=== PATIENT | male | born 1975 | race Caucasian/White ===

== ENCOUNTER 2020-03-18 19:08 | Emergency (ER) | payer BC, SELFPAY ==
[2020-03-18 19:27] VITALS: BP 136/87; PULSE 94; RESP 18; TEMP 36.6; O2SAT 98; BMI 26.4
--- NOTE | 2020-03-18 19:39 | HMH.EDUTC ---
[facility] [place] Disposition Clinical Impression: COVID-19 Disposition: Home, Self-Care Condition on Discharge: Good Instructions: Preventing the Spread of Coronavirus Discharge Instructions Referrals: PCP,No [Primary Care Provider] - Time of Disposition: 19:46 Medical Decision Making - Damon Inquiry Pt receiving controlled substance: No Vital Signs: 03/18/20 19:27 Temperature 97.9 F Temperature Source Oral Pulse Rate [Right Brachial] 94 H Respiratory Rate 18 Blood Pressure [Right Arm] 136/87 Blood Pressure Mean [Right Arm] 103 Blood Pressure Source [Right Arm] Automatic Cuff Blood Pressure Position [Right Arm] Sitting 02 Sat by Pulse Oximetry 98 Oxygen Delivery Method Room Air Orders (Tests/Meds): ORDERS Category Date Time Status Covid-19 Nasal PCR ([facility]) Routine Lab 03/18/20 19:[address] [facility] [place] HPI - General Chief complaint: [facility] Stated complaint: covid exposure Time Seen by Provider: 03/18/20 19:39 Mode of Arrival: Ambulatory Source of Information: Patient Limitations: No Limitations Description of Symptoms (Recalled from Triage Doc. by RN): PATIENT REQUESTING COVID TEST TO RETURN TO WORK; DENIES SYMPTOMS AT THIS TIME HEENT Symptoms (Recalled from RN notes): No Resp Symptoms (Recalled from RN notes): No Skin Symptoms (Recalled from RN notes): No MS Symptoms (Recalled from RN notes): No Functional Status (Recalled from RN notes): WNL - History of Present Illness Provider Complaint: 44 yr old male presents for covid test. Pt states he was exposed at work and needs two neg covid test to return to work. no symptoms - Related Data Allergies Allergy/AdvReac Type Severity Reaction Status Date / Time No Known Allergies Allergy Unverified 05/12/17 15:10 - Worker's Comp Is this a Worker's Comp case?: No [facility] History - Hepatitis A Screen Drug use history?: No High risk sexual behaviors?: No History of sexually transmitted infection?: No Currently employed?: No Childcare worker?: No Do you have indoor plumbing?: Yes Do you have electricity?: Yes Attestation statement:: This patient has been screened for Hepatitis A risk factors. I have reviewed the patient's past medical history: Yes - Social History Alcohol Intake: never Occupational Status: other ROS Obtained: Yes Systems reviewed as appropriate & no additional complaints - Constitutional Constitutional: Reports system reviewed and no additional complaints, except as docu, Denies fever(s) - Eyes Eyes: Reports system reviewed and no additional complaints, except as docu, Denies blurry vision - ENT Ears, Nose, Mouth, and Throat: Reports system reviewed and no additional complaints, except as docu, Denies change in voice - Cardiovascular Cardiovascular: Reports system reviewed and no additional complaints, except as docu, Denies chest pain at rest - Respiratory Respiratory: Yes system reviewed and no additional complaints, except as docu, No change in phlegm color - Gastrointestinal Gastrointestingal: Reports: system reviewed and no additional complaints, except as docu. Denies: nausea - Genitourinary Female Genitourinary: Reports system reviewed and no additional complaints, except as docu - Musculoskeletal Musculoskeletal: Reports system reviewed and no additional complaints, except as docu, Denies joint swelling - Integumentary/Breasts Skin/Breast: Reports system reviewed and no additional complaints, except as docu, Denies rash - Neurologic Neurologic: Reports system reviewed and no additional complaints, except as docu, Denies behavioral changes - Endocrine Endocrine: Reports system reviewed and no additional complaints, except as docu, Denies fatigue - Hematologic/Lymphatic Henatologic/Lymphatic: Reports system reviewed and no additional complaints, except as docu, Denies easy bruising - Allergic/Immunologic Allergic/Immunologic: Reports system reviewed and no additional complaints, ex
[2020-03-18 19:48] VITALS: BP 136/87; PULSE 94; RESP 18; TEMP 36.6; O2SAT 98
--- NOTE | 2020-03-19 12:02 | PC.NURSE ---
PATIENT NOTIFIED OF POSITIVE COVID TEST AT THIS TIME
== END 2020-03-18 19:49 | disposition home or self-care (01) ==
PROVIDERS: Emergency Provider Nurse Practitioner Family
DX: U07.1 COVID-19 (principal)
CPT/HCPCS: 99201; U0003

== ENCOUNTER → 2020-10-06 11:57 | Outpatient (CLI) | payer BC, SELFPAY ==
[2020-10-06 12:22] LABS: Basophils # 0.1 K/mm3 (0-0.2); Basophils % 0.9 % (0.1-2.0); Eosinophils # 0.2 K/mm3 (0.0-0.4); Eosinophils % 4.2 % (0.1-12.0); Hematocrit 45.5 % (42.0-52.0); Hemoglobin 14.3 g/dL (14.1-18.0); Lymphocytes # 2.2 K/mm3 (0.7-4.5); Lymphocytes % 43.8 % (10-50); Mean Corpuscular HGB Conc 31.4 g/dL (31.8-35.4); Mean Corpuscular Hemoglobin 27.9 pg (27.0-31.2); Mean Corpuscular Volume 88.8 fl (80-94); Mean Platelet Volume 6.9 fl (7.4-10.4); Monocytes # 0.3 K/mm3 (0.1-1.0); Monocytes % 6.1 % (1.7-9.3); Neutrophils # 2.2 K/mm3 (1.8-7.8); Neutrophils % 44.9 % (37.0-80.0); Platelet Count 301 K/mm3 (142-424); Red Blood Count 5.13 M/mm3 (4.60-6.20); Red Cell Distribution Width 12.8 % (11.5-17.5); White Blood Count 4.9 K/mm3 (4.8-10.8)
[2020-10-06 13:24] LABS: Hemoglobin A1C 5.9 % (4.0-6.0)
[2020-10-06 13:59] LABS: Alanine Aminotransferase 64 U/L (12-78); Albumin Level 4.4 g/dl (3.5-5.0); Albumin/Globulin Ratio 1.6 (1.1-1.8); Alkaline Phosphatase 71 U/L (38-126); Anion Gap 11.2 mEq/L (5-15); Aspartate Amino Transferase 41 U/L (17-59); Bilirubin,Total 0.8 mg/dl (0.2-1.3); Blood Urea Nitrogen 11 mg/dl (9-20); Calcium 9.4 mg/dl (8.4-10.2); Carbon Dioxide 32 mmol/L (22.0-30.0); Chloride 104 mmol/L (98-107); Chol/HDL Ratio 5.1 (1-3.5); Cholesterol 213 mg/dl (140-200); Estimated Glomerular Filt Rate 82 ml/min (>60); GFR (African American) 99 ML/MIN (>60); Globulin 2.7 g/dL (1.3-3.2); Glucose 88 mg/dl (74-100); HDL Cholesterol 42 mg/dl (40-60); Potassium 5.2 mmoL/L (3.5-5.1); Sodium 142 mmol/L (136-145); Total Protein,Serum 7.1 g/dl (6.3-8.2); Triglycerides 111 mg/dl (30-150); VLDL Cholesterol 22 mg/dL (0-40)
[2020-10-06 14:10] LABS: Direct LDL Cholesterol 125.41 mg/dL (100-129)
[2020-10-06 14:32] LABS: Thyroid Stimulating Hormone 1.73 uIU/mL (0.465-4.68)
[2020-10-06 14:50] LABS: Vitamin B12 376 pg/mL (239-931)
[2020-10-09 10:38] LABS: Testosterone,Total 45 ng/dL (264-916)
== END ==
PROVIDERS: Visit Provider Nurse Practitioner Family
DX: R53.81 Other malaise (principal); R68.82 Decreased libido; R00.2 Palpitations
CPT/HCPCS: 36415; 80053; 80061; 82607; 83036; 84403; 84443; 85025

== ENCOUNTER 2021-03-19 17:23 | Emergency (ER) | payer BC, SELFPAY ==
[2021-03-19 17:23] VITALS: BP 153/94; PULSE 67; RESP 16; TEMP 36.6; O2SAT 98; BMI 30.1
--- NOTE | 2021-03-19 19:34 | HMH.EDUTC ---
[facility] [place] Disposition Condition on Discharge: Good <Noelle Vanessa E - Last Filed: 03/19/21 19:38> <MargieOmar Hall - Last Filed: 03/19/21 21:22> Clinical Impression: Difficulty urinating, Renal colic Disposition: Home, Self-Care Instructions: DI for Kidney Stones Additional Instructions: fluids and see pcp and urology for follow up Referrals: Provider,Allyssa, [Primary Care Provider] - Bruno Shafer MD [Staff Physician] - Medical Decision Making - Damon Inquiry Pt receiving controlled substance: No Damon was queried for this patient: No - Lab Data Lab results reviewed: Yes: I reviewed the patient's lab results. <Noelle Vanessa - Last Filed: 03/19/21 19:38> - Lab Data Result diagrams: 03/19/21 19:15 03/19/21 19:15 - CT Data CT Scan: Abdomen, Pelvis Time Received: 21:[address] Reviewed: Yes: I have viewed the radiologist's interpretation Preliminary Findings: Abnormal (see report ) <MargieOmar S - Last Filed: 03/19/21 21:22> Vital Signs: 03/19/21 17:23 03/19/21 19:44 Temperature 97.9 F 97.9 F Temperature Source Oral Oral Pulse Rate [Left Radial] 67 67 Respiratory Rate 16 16 Blood Pressure [Right Arm] 153/94 H 153/94 H Blood Pressure Mean [Right Arm] 113 113 Blood Pressure Source [Right Arm] Automatic Cuff Blood Pressure Position [Right Arm] Sitting 02 Sat by Pulse Oximetry 98 98 Oxygen Delivery Method Room Air - Lab Data Lab Results 03/19/21 19:15: WBC 8.6, RBC 5.65, Hgb 16.5, Hct 50.8, MCV 89.9, MCH 29.2, MCHC 32.5, RDW 14.0, Plt Count 342, MPV 7.7, Neut % (Auto) 55.5, Lymph % (Auto) 33.5, Sierra % (Auto) 5.9, Eos % (Auto) 4.1, Baso % (Auto) 1.0, Neut # (Auto) 4.8, Lymph # (Auto) 2.9, Sierra # (Auto) 0.5, Eos # (Auto) 0.4, Baso # (Auto) 0.1, ESR 1 03/19/21 19:15: Sodium 140, Potassium 3.2 L, Chloride 97 L, Carbon Dioxide 37 H, Anion Gap 9.2, BUN 11, Creatinine 1.10, Estimated Creat Clear 115, Estimated GFR 73, Est GFR ( Amer) 88, Glucose 97, Calcium 9.1, Total Bilirubin 0.7, AST 36, ALT 25, Alkaline Phosphatase 75, C-Reactive Protein 2.2, Total Protein 7.4, Albumin 4.3, Globulin 3.1, Albumin/Globulin Ratio 1.4, Amylase 73, Lipase 59, Procalcitonin 0.056 03/19/21 19:18: Urine Color Yellow, Urine Appearance Clear, Urine pH 6.5, Ur Specific [place] 1.025, Urine Protein Negative, Urine Glucose (UA) Negative, Urine Ketones Negative, Urine Blood 2+, Urine Nitrate Negative, Urine Bilirubin Negative, Urine Urobilinogen 4.0, Ur Leukocyte Esterase Negative Orders (Tests/Meds): ED MEDICATIONS Generic Name Dose Route Start Last Admin Trade Name Freq PRN Reason Stop Dose Admin Sodium Chloride 1,000 mls @ 999 mls/hr 03/19/21 20:00 03/19/21 20:30 Sod Chlor 0.9% 1000ml Bag IV 03/19/21 21:00 999 mls/hr .Q1H1M MIKEY Administration Discontinued Medications Generic Name Dose Route Start Last Admin Trade Name Freq PRN Reason Stop Dose Admin Ketorolac Tromethamine 30 mg 03/19/21 19:57 03/19/21 20:30 Ketorolac 30mg/Ml Vial IV 03/19/21 19:58 30 mg ONCE ONE Administration ORDERS Category Date Time Status UA [Urinalysis and Microscopic] Stat Lab 03/19/21 19:18 Results Medical Decision Narrative: Discussed with patient and he advised he was still having pain in his left lower abdomen and felt like he still needed to urinate but having problems urinating that started on Thursday night/early Thursday morning States that pain has woke him up for the last two night and was in flank area but now in his left lower abdomen Discussed with patient and will transfer to the ED for further evaluation and testing and patient agreed Called ED spoke with Vasquez and [facility] Mode of Arrival: Ambulatory Source of Information: Patient Limitations: No Limitations Description of Symptoms (Recalled from Triage Doc. by RN): difficult time urinating, feels that he needs to go all the time with little urine, Back pain and sto
[2021-03-19 19:44] VITALS: BP 153/94; PULSE 67; RESP 16; TEMP 36.6; O2SAT 98
--- NOTE | 2021-03-19 19:48 | CT_ITS ---
PROCEDURE INFORMATION: Exam: CT Abdomen And Pelvis Without Contrast Exam date and time: 03/19/2021 7:48 PM Age: 45 years old Clinical indication: Abdominal pain; Left; Patient HX: Lt flank pain for 2 days TECHNIQUE: Imaging protocol: Computed tomography of the abdomen and pelvis without contrast. Radiation optimization: All CT scans at this facility use at least one of these dose optimization techniques: automated exposure control; mA and/or kV adjustment per patient size (includes targeted exams where dose is matched to clinical indication); or iterative reconstruction. COMPARISON: No relevant prior studies available. FINDINGS: Lungs: 6 mm granuloma at the left lung base. Liver: Parenchymal enhancement is not evaluated without contrast. No hepatomegaly. Gallbladder and bile ducts: No calcified stones. No ductal dilation. Pancreas: Parenchymal enhancement is not evaluated without contrast. No ductal dilation. Spleen: Parenchymal enhancement is not evaluated without contrast. No splenomegaly. Adrenal glands: No mass. Kidneys and ureters: Parenchymal enhancement is not evaluated without contrast. No hydronephrosis. Stomach and bowel: No obstruction. No mucosal thickening. Appendix: No evidence of appendicitis. Intraperitoneal space: No free air. No significant fluid collection. Vasculature: Limited evaluation without contrast. Calcified atherosclerosis. No abdominal aortic aneurysm. Lymph nodes: No enlarged lymph nodes. Urinary bladder: 2 mm calcification along the left posterior paramedian bladder wall. Mild bladder wall thickening measuring 7 mm. Reproductive: No acute abnormality. Bones/joints: No acute fracture. Soft tissues: Limited evaluation without contrast. No significant soft tissue swelling. IMPRESSION: 1. 2 mm calcification along the left posterior paramedian bladder wall which may represent a recently passed stone. 2. Mild bladder wall thickening measuring 7 mm which may in part be secondary to underdistention however correlation with UA is recommended.
[2021-03-19 20:02] LABS: Basophils # 0.1 K/mm3 (0-0.2); Eosinophils # 0.4 K/mm3 (0.0-0.4); Eosinophils % 4.1 % (0.1-12.0); Hematocrit 50.8 % (42.0-52.0); Hemoglobin 16.5 g/dL (14.1-18.0); Lymphocytes # 2.9 K/mm3 (0.7-4.5); Lymphocytes % 33.5 % (10-50); Mean Corpuscular HGB Conc 32.5 g/dL (31.8-35.4); Mean Corpuscular Hemoglobin 29.2 pg (27.0-31.2); Mean Corpuscular Volume 89.9 fl (80-94); Mean Platelet Volume 7.7 fl (7.4-10.4); Monocytes # 0.5 K/mm3 (0.1-1.0); Monocytes % 5.9 % (1.7-9.3); Neutrophils # 4.8 K/mm3 (1.8-7.8); Neutrophils % 55.5 % (37.0-80.0); Platelet Count 342 K/mm3 (142-424); Red Blood Count 5.65 M/mm3 (4.60-6.20); White Blood Count 8.6 K/mm3 (4.8-10.8)
[2021-03-19 20:11] LABS: Alanine Aminotransferase 25 U/L (12-78); Albumin Level 4.3 g/dl (3.5-5.0); Albumin/Globulin Ratio 1.4 (1.1-1.8); Alkaline Phosphatase 75 U/L (38-126); Amylase 73 U/L (30-110); Anion Gap 9.2 mEq/L (5-15); Aspartate Amino Transferase 36 U/L (17-59); Bilirubin,Total 0.7 mg/dl (0.2-1.3); Blood Urea Nitrogen 11 mg/dl (9-20); Calcium 9.1 mg/dl (8.4-10.2); Carbon Dioxide 37 mmol/L (22.0-30.0); Chloride 97 mmol/L (98-107); Creatinine Clearance Estimated 115 mL/min (50-200); Estimated Glomerular Filt Rate 73 ml/min (>60); GFR (African American) 88 ML/MIN (>60); Globulin 3.1 g/dL (1.3-3.2); Glucose 97 mg/dl (74-100); Lipase 59 U/L (23-300); Potassium 3.2 mmoL/L (3.5-5.1); Sodium 140 mmol/L (136-145); Total Protein,Serum 7.4 g/dl (6.3-8.2)
[2021-03-19 20:17] LABS: C-Reactive Protein 2.2 mg/L (0-4)
[2021-03-19 20:30] LABS: Procalcitonin 0.056 ng/mL (0.0-2.0)
[2021-03-19 20:50] LABS: Microscopic, Urine URINE MICROSCOPIC (MICROSCOPIC)
[2021-03-19 21:03] LABS: Erythrocyte Sedimentation Rate 1 mm/hr (0-15)
[2021-03-19 21:07] LABS: Appearance,Urine CLEAR (Clear); Bilirubin,Urine Negative (Negative); Blood, Urine 2+ (Negative); Color,Urine YELLOW (Yellow); Glucose,Urine (UA) Negative (Negative); Ketones,Urine Negative (Negative); Leukocyte Esterase,Urine Negative (Negative); Nitrate,Urine Negative (Negative); PH,Urine 6.5 (5.0-8.5); Protein,Urine Negative (Negative); Specific Gravity, Urine 1.025 (1.005-1.030)
[2021-03-19 21:50] VITALS: BP 135/78; PULSE 88; RESP 18; TEMP 36.8; O2SAT 98
[2021-03-20 10:41] LABS: Apearance,Urine Cloudy (Clear); Blood, Urine 2+ (Negative); Color,Urine Yellow (Yellow); Glucose,Urine (UA) Negative (Negative); Ketones,Urine TRACE (Negative); PH,Urine 6.5 (5.0-8.5); Protein,Urine Negative (Negative); Specific Gravity, Urine 1.025 (1.005-1.030)
[2021-03-20 10:42] LABS: Bilirubin,Urine Negative (Negative); UTC Leukocyte Esterase,Urine Negative (Negative); UTC Nitrate,Urine Negative (Negative); Urobilinogen,Urine 4 EU/dl (0.2)
== END 2021-03-19 22:00 | disposition home or self-care (01) ==
LOC: UTC 19:42 → ER 19:42
PROVIDERS: Nurse Practitioner; Emergency Provider Emergency Medicine
DX: N23 Unspecified renal colic (principal); R10.32 Left lower quadrant pain
CPT/HCPCS: 74176; 80053; 81001; 81003; 82150; 83690; 84145; 85025; 85651; 86140; 99283

== ENCOUNTER → 2021-06-03 16:13 | Outpatient (CLI) | payer BC, SELFPAY | PROVIDERS: Visit Provider Nurse Practitioner | DX: U07.1 COVID-19 (principal) | CPT/HCPCS: C9803; U0003; U0005 ==

== ENCOUNTER 2022-01-20 13:17 | Emergency (ER) | payer BC, SELFPAY ==
[2022-01-20 15:40] VITALS: BP 145/91; PULSE 84; RESP 18; TEMP 36.6; O2SAT 97; BMI 27.8
--- NOTE | 2022-01-20 16:09 | EXP.UTC ---
Discharge Plan Disposition Patient Disposition: Home, Self-Care Condition: Good Prescriptions Prescriptions: New azithromycin [Zithromax Z-Miller] 250 mg tablet See Rx Instructions .ROUTE .COMPLEX Qty: 6 0RF Rx Instructions: For 250 mg dose pack: take 500 mg today (day 1), then 250 mg for 4 days (days 2-5) methylprednisolone [Medrol (Miller)] 4 mg tablets,dose pack 4 mg PO DAILY Qty: 21 0RF guaifenesin [Mucinex] 600 mg tablet extended release 12hr 600 mg PO Q12H PRN (Reason: cough) Qty: 20 0RF No Action buprenorphine-naloxone [Suboxone] 8-2 mg film 1 film BUCCAL DAILY Referrals Follow up/Referrals: Provider,Referral, MD [Primary Care Provider] - See instructions Clinical Impressions Clinical Impression: Sinusitis, Bronchitis Stand Alone Forms Stand Alone Forms: Work/School Release Instructions Patient Instructions: Acute Bronchitis, DI for Sinusitis Discharge ED Provider: Noelle Vanessa [facility] [place] HPI General Stated complaint: congestion, cough Mode of Arrival: Ambulatory Source of Information: Patient Limitations: No Limitations Time Seen by Provider: 01/20/22 16:10 Description of Symptoms (Recalled from Triage Doc. by RN): PATIENT C/O FEVER, COUGH, CHEST CONGESTION AND HEADACHE X 3 DAYS HEENT Symptoms (Recalled from RN notes): Yes Resp Symptoms (Recalled from RN notes): Yes Skin Symptoms (Recalled from RN notes): No MS Symptoms (Recalled from RN notes): No Functional Status (Recalled from RN notes): WNL History of Present Illness Provider Complaint: Patient states that he has been having low grade fever, sinus pain and pressure, drainage in the back of throat and feels like it is trying to move into his chest. States that he has been having cough and burning in his throat with cough like he gets sometimes with bronchitis States that today he was still feeling bad so he came in Related Data Home Medications Medication Instructions Recorded Confirmed buprenorphine 8 mg-naloxone 2 mg 1 film buccal DAILY 03/26/21 03/26/21 sublingual film (Suboxone) Previous Rx's Medication Instructions Recorded azithromycin 250 mg tablet See Rx Instructions PO .COMPLEX #6 01/20/22 (Zithromax Z-Miller) tabs guaifenesin 600 mg tablet, 600 mg PO Q12H PRN cough #20 tabs 01/20/22 extended release 12 hr (Mucinex) methylprednisolone 4 mg tablets in 4 mg PO DAILY #21 tabs 01/20/22 a dose pack (Medrol (Miller)) Allergies Allergy/AdvReac Type Severity Reaction Status Date / Time No Known Allergies Allergy Unverified 03/26/21 15:11 Worker's Comp Is this a Worker's Comp case?: No PFSH PFSH Medical History (Updated 01/20/22 @ 16:20 by Noelle Vanessa APRN) Hypertension Kidney stone Surgical History (Updated 01/20/22 @ 15:52 by Nadine Hutson, RN) History of tonsillectomy Social History (Updated 01/20/22 @ 15:52 by Nadine Hutson RN) Smoking Status: Never smoker alcohol intake: never substance use type: former substance user current occupational status: other Travel in the last 8 weeks: None housing: house ROS Obtained: Yes All systems reviewed & no additional complaints except as documented and Yes Systems reviewed as appropriate & no additional complaints except as documented Constitutional Constitutional: Reports fever(s) ENT Ears, Nose, Mouth, and Throat: Reports system reviewed and no additional complaints, except as documented, Reports sinus pain, Reports sinus pressure and Reports sore throat Cardiovascular Cardiovascular: Reports system reviewed and no additional complaints, except as documented, Reports as per HPI and Denies dyspnea Respiratory Respiratory: Reports system reviewed and no additional complaints, except as documented, Reports as per HPI, Denies shortness of breath, Reports chest congestion, Reports cough and Denies dyspnea Gastrointestinal Gastrointestingal: Reports system reviewed and no additional complaints, except as documented and as
[2022-01-20 16:24] VITALS: BP 145/91; PULSE 84; RESP 18; TEMP 36.6; O2SAT 97
== END 2022-01-20 16:34 | disposition home or self-care (01) ==
PROVIDERS: Emergency Provider Nurse Practitioner
DX: J20.9 Acute bronchitis, unspecified (principal); J32.9 Chronic sinusitis, unspecified

== ENCOUNTER 2022-04-30 18:07 | Emergency (ER) | payer BC, SELFPAY ==
[2022-04-30 18:18] VITALS: BP 152/88; PULSE 70; RESP 18; TEMP 36.5; O2SAT 98; BMI 27.1
--- NOTE | 2022-04-30 18:30 | EXP.UTC ---
Discharge Plan Disposition Patient Disposition: Home, Self-Care Condition: Good Prescriptions Prescriptions: New oseltamivir [Tamiflu] 75 mg capsule 75 mg PO Q12H 5 Days Qty: 10 0RF ondansetron 4 mg tablet,disintegrating 4 mg PO Q8H PRN (Reason: nausea and vomiting) Qty: 10 0RF No Action buprenorphine-naloxone [Suboxone] 8-2 mg film 1 film BUCCAL DAILY azithromycin [Zithromax Z-Miller] 250 mg tablet See Rx Instructions .ROUTE .COMPLEX Qty: 6 0RF Rx Instructions: For 250 mg dose pack: take 500 mg today (day 1), then 250 mg for 4 days (days 2-5) methylprednisolone [Medrol (Miller)] 4 mg tablets,dose pack 4 mg PO DAILY Qty: 21 0RF guaifenesin [Mucinex] 600 mg tablet extended release 12hr 600 mg PO Q12H PRN (Reason: cough) Qty: 20 0RF Activity Restrictions/Add. Instructions Additional Instructions/Restrictions: *Monitor Temp, Over the counter Motrin or Tylenol as directed/as needed Tylenol every 4 hours and Motrin every 6 hours (as long as your family doctor has told you that you can take it) for fever or pain. and straight to ER if unable to lower temp less than 101.0 after medication given *Warm salt water gargles may help to soothe the throat *Throat Lozenges? *Warm fluids like tea with honey may help to soothe the throat? *Sleep elevated *Humidifier/Vaporizer Start Tamiflu today if you are going to take it. Discussed risk and possible benefits. Lots of rest Increase Fluids water, Gatorade, powerade, Alternate Tylenol and / or ibuprofen as discussed for fever, aches, chills Follow up IMMEDIATELY with your family doctor for new or worsening Symptoms OR no noticeable improvement over the next 48-72 hours, 911 for difficulty or breathing You or your child area contagious until no fever, aches, chills for 24 hours with medication for symptoms Help Prevent the spread of influenza: ?Wash your hands often. Use soap and water. Wash your hands after you use the bathroom, change a child's diapers, or sneeze. Wash your hands before you prepare or eat food. Use gel hand cleanser that has 60% alcohol, when soap and water are not available. Do not touch your eyes, nose, or mouth unless you have washed your hands first. Cover your mouth when you sneeze or cough. Cough into a tissue or the bend of your arm. If you use a tissue, throw it away immediately and wash your hands. Clean shared items with a germ-killing general cleaner. Clean table surfaces, doorknobs, and light switches. Do not share towels, silverware, and dishes with people who are sick. Wash bed sheets, towels, silverware, and dishes with soap and water. Wear a mask over your mouth and nose if you are sick. The face mask may help protect others from becoming infected with the flu. Wear the mask when in common areas of your home or if you seek care with a healthcare provider. Stay away from others if you are sick. Stay at home until 24 hours after your fever and symptoms are gone. Follow up IMMEDIATELY for new or worsening symptoms or no Noticeable improvement over the next 48-72 hours. 911 for difficulty breathing or swallowing You were tested for today for Upper Respiratory panel with COVID19 your test result should be back in the next 24-48 hours, you may check your results on the [facility] Clinical Impressions Clinical Impression: Viral syndrome Stand Alone Forms Stand Alone Forms: Work/School Release Instructions Patient Instructions: DI for Nausea -- Adult, DI for Fever (Symptom) -- Adult Discharge ED Provider: Noelle Vanessa [facility] [place] HPI General Stated complaint: sullivan, aBD pAIN Mode of Arrival: Ambulatory Source of Information: Patient Limitations: No Limitations Time Seen by Provider: 04/30/22 18:30 Description of Symptoms (Recalled from Triage Doc
[2022-04-30 18:47] LABS: Adenovirus,PCR Not Detected (NotDetected); Bordetella Pertussis Not Detected (NotDetected); Chlamydophila Pneumoniae, PCR Not Detected (NotDetected); Coronavirus 19, PCR Not Detected (NotDetected); Coronavirus 229E Not Detected (NotDetected); Coronavirus NL63 Not Detected (NotDetected); Coronavirus OC43 Not Detected (NotDetected); Coronovirus HKU1,PCR Not Detected (NotDetected); Human Metapneumovirus Not Detected (NotDetected); Influenza A, PCR Not Detected (NotDetected); Influenza AH1, 2009 Not Detected (NotDetected); Influenza AH1, PCR Not Detected (NotDetected); Influenza AH3,PCR Not Detected (NotDetected); Influenza B, PCR Not Detected (NotDetected); Mycoplasma Pneumoniae, PCR Not Detected (NotDetected); Parainfluenza 1, PCR Not Detected (NotDetected); Parainfluenza 2, PCR Not Detected (NotDetected); Parainfluenza 3, PCR Not Detected (NotDetected); Parainfluenza 4, PCR Not Detected (NotDetected); Respiratory Syncytial Virus Not Detected (NotDetected); Rhinovirus/Enterovirus Not Detected (NotDetected)
[2022-04-30 19:10] VITALS: BP 152/88; PULSE 70; RESP 18; TEMP 36.5; O2SAT 97
== END 2022-04-30 19:10 | disposition home or self-care (01) ==
LOC: UTC 19:16
PROVIDERS: Emergency Provider Nurse Practitioner
DX: R51.9 Headache, unspecified (principal); R10.9 Unspecified abdominal pain; B34.9 Viral infection, unspecified
CPT/HCPCS: 87581; 87632; 87798; 99212; C9803; G0463; U0003; U0005

== ENCOUNTER → 2023-02-19 15:33 | Outpatient (CLI) | payer BC, SELFPAY ==
--- NOTE | 2023-02-19 15:47 | XR_ITS ---
FINAL REPORT CLINICAL HISTORY: ACUTE PAIN FINDINGS: AP, lateral and oblique views of the right knee were obtained. There is no prior exam for comparison. There is no acute osseous abnormality of the right knee. The joint space is preserved. The soft tissues are normal. There is no joint effusion. IMPRESSION: No acute osseous abnormality of the right knee. Reviewed, Interpreted and Dictated by Elli Daniel MD Transcribed by Susan Owens Authenticated and [facility]
== END ==
LOC: RAD 15:42
PROVIDERS: Visit Provider Physician Assistant
DX: M25.561 Pain in right knee (principal)
CPT/HCPCS: 73562

== ENCOUNTER 2023-09-17 17:58 | Emergency (ER) | payer BC, SELFPAY ==
--- NOTE | 2023-09-17 17:57 | ECG_ITS ---
APPROVED REPORT Exam: Resting ECG HR:104 bpm ECG Measurements Heart Rate 104 AXES NE 134 P 52 QRSd 86 QRS 56 QT 317 T -77 QTc 378 Conclusion SINUS TACHYCARDIA LEFT VENTRICULAR HYPERTROPHY AND ST-T CHANGE [VOLTAGE CRITERIA PLUS ST/T ABNORMALITY] ABNORMAL ECG INTERPRETATION BASED ON A DEFAULT AGE OF 41 YEARS UNCONFIRMED REPORT Electronically signed by : CORIN BURRELL, 09/20/2023 01:18:24
[2023-09-17 17:58] VITALS: BP 198/112; PULSE 99; RESP 20; TEMP 36.7; O2SAT 96; BMI 28.7
[2023-09-17 18:00] VITALS: BP 190/104; PULSE 94; RESP 13; O2SAT 92
--- NOTE | 2023-09-17 18:00 | ED_ITS ---
Discharge Plan Disposition Patient Disposition: Home, Self-Care Condition: Good Prescriptions Prescriptions: No Action buprenorphine-naloxone [Suboxone] 8-2 mg film 1 film BUCCAL DAILY Clenpiq 10 mg-3.5 gram- 12 gram/160 mL solution 175 ml PO DAILY Qty: 350 0RF Rx Instructions: take first dose at 5-9PM evening before colonoscopy; 2nd dose the next day approximately 5 hrs before colonoscopy Referrals Follow up/Referrals: Bishnu Nunez MD [Staff Physician] - See instructions Provider,MD Allyssa [Referring] - See instructions Activity Restrictions/Add. Instructions Additional Instructions/Restrictions: Please call to make an appointment with cardiology in the a.m. for further evaluation. Return to the ER for any worsening signs or symptoms including chest pain nausea vomiting change in level of consciousness. Clinical Impressions Clinical Impression: Acute chest pain Discharge ED Provider: Damian Saleh HPI <MIGDALIA Arnold - Last Filed: 09/17/23 19:38> General Chief Complaint: Chest Pain Stated Complaint: chest pain Time Seen by Provider: 09/17/23 18:00 History of Present Illness HPI narrative: Patient presents for evaluation of chest pain . Patient reports that he was holding his 2-month-old granddaughter and a ceiling fan began to fall and is attempting to move out of the way and protect her he fell backwards. He ended up on the floor and the 2-month-old ended up on the couch with no apparent injury. However after patient hit the floor and suffered no apparent injury. However he reports that he feels like he had shock from the waist up radiating down both arms and felt a rapid heart rate. He denies headache loss of consciousness fever chills hemoptysis hematochezia melena nausea vomit diarrhea. On arrival patient denies chest pain at all and reports bilateral hand numbness and tingling. Related Data Home Medications Medication Instructions Recorded Confirmed buprenorphine 8 mg-naloxone 2 mg 1 film buccal DAILY 03/26/21 03/26/21 sublingual film (Suboxone) Previous Rx's Medication Instructions Recorded sod picosulf 10 mg-magnes 3.5 175 ml PO DAILY 2 doses #350 mL 04/28/23 gram-citric 12 gram/160 mL oral solution (Clenpiq) Allergies Allergy/AdvReac Type Severity Reaction Status Date / Time No Known Allergies Allergy Unverified 03/26/21 15:11 PFSH <MIGDALIA Arnold - Last Filed: 09/17/23 19:38> [facility] Disclaimer: The information contained in this section may have been updated after the patient was seen, as this information can be updated by other users. Medical History (Updated 09/17/23 @ 19:38 by MIGDALIA Arnold) Kidney stone Hypertension Surgical History History of tonsillectomy Family History (Updated 05/14/23 @ 10:47 by Vernon Machuca, RN) Other Family history of diabetes mellitus Family history of heart disease Social History (Updated 05/14/23 @ 10:48 by Vernon Machuca RN) Smoking Status: Current every day smoker alcohol intake: never substance use type: former substance user current occupational status: employed and other Travel in the last 8 weeks: None housing: house <MIGDALIA Arnold - Last Filed: 09/17/23 19:38> ROS Obtained: Yes Systems reviewed as appropriate & no additional complaints except as documented Physical Exam <MIGDALIA Arnold - Last Filed: 09/17/23 19:38> General General appearance: alert and in no apparent distress Head Head exam: atraumatic and normal inspection Eye Eye exam: Present normal appearance, PERRL and EOMI ENT ENT exam: Present normal exam, normal oropharynx and mucous membranes moist Neck Neck exam: Present normal inspection, full ROM and trachea midline; Absent lymphadenopathy Chest Chest inspection: Present normal inspection and symmetric chest wall rise; Absent tenderness Respiratory Respiratory exam: Present normal lung sounds bilaterally; Absent respiratory distress, wheezes, stridor or accessory muscle use Cardiovascular Cardiovascular exam: Present regular rate, normal rhythm, normal heart sounds, +S1 and +S2 Abdominal Exam Abdominal exam: Present soft and normal bowel sounds; Absent tenderness, guarding or rebound Extremities Exam Extremities exam: Present normal inspection and full ROM Back Exam Back exam: Present normal inspection and full ROM; Absent tenderness Neurological Exam Neurological exam: Present alert, oriented X3 and CN II-XII intact Psychiatric Psychiatric exam: Present normal affect and anxious Skin Skin exam: Present warm, dry and normal color Lymphatic Lymphatic Findings: no adenopathy HEART Score <MIGDALIA Arnold Last Filed: 09/17/23 19:38> HEART Score HEART Score assessment performed?: Yes History (anamnesis): Slightly suspicious ECG: Normal Age: 45-65 years Risk factors: 1-2 risk factors Troponin: </= normal limit HEART Score: 2 <Damian Saleh MD - Last Filed: 09/17/23 19:46> HEART Score HEART Score: 2 Critical Care <MIGDALIA Arnold - Last Filed: 09/17/23 19:38> Critical Care Time Critical Care Time: No Medical Decision Making <MIGDALIA Arnold - Last Filed: 09/17/23 19:38> Medical Records Medical records reviewed: Yes I reviewed the patient's medical records. Damon Inquiry Pt receiving controlled substance: No Vital Signs Vital Signs: 09/17/23 17:58 09/17/23 18:00 09/17/23 18:30 Temperature 98.0 F Temperature Source Oral Pulse Rate 94 H 96 H Pulse Rate [Right Radial] 99 H Respiratory Rate 20 13 13 Blood Pressure 190/104 H 156/106 H Blood Pressure [Right Arm] 198/112 H Blood Pressure Mean 130 138 Blood Pressure Mean [Right Arm] 140 02 Sat by Pulse Oximetry 96 92 L 92 L Oxygen Delivery Method Room Air 09/17/23 19:43 Temperature Temperature Source Pulse Rate 90 Pulse Rate [Right Radial] Respiratory Rate Blood Pressure Blood Pressure [Right Arm] Blood Pressure Mean Blood Pressure Mean [Right Arm] 02 Sat by Pulse Oximetry Oxygen Delivery Method Lab Data Lab results reviewed: Yes I reviewed the patient's lab results. Labs: Lab Results 09/17/23 17:55: WBC 9.4, RBC 5.64, Hgb 17.2, Hct 52.6 H, MCV 93.2, MCH 30.4, MCHC 32.6, RDW 14.0, Plt Count 258, MPV 7.6, Neut % (Auto) 59.8, Lymph % (Auto) 31.1, [place] % (Auto) 5.2, Eos % (Auto) 2.6, Baso % (Auto) 1.2, Neut # (Auto) 5.6, Lymph # (Auto) 2.9, [place] # (Auto) 0.5, Eos # (Auto) 0.2, Baso # (Auto) 0.1, PT 11.3, INR 1.05, Sodium 140, Potassium 2.9 L*, Chloride 100, Carbon Dioxide 35 H, Anion Gap 7.9, BUN 11, Creatinine 1.20, Estimated Creat Clear 99, Estimated GFR 65, Est GFR ( Amer) 79, Glucose 134 H, Calcium 8.8, Total Bilirubin 1.2, AST 34, ALT 37, Alkaline Phosphatase 69, Troponin I < 0.01, Total Protein 7.0, Albumin 4.2, Globulin 2.8, Albumin/Globulin Ratio 1.5 09/17/23 18:02: Urine Color Yellow, Urine Appearance Clear, Urine pH 7.5, Ur Specific [place] 1.010, Urine Protein Negative, Urine Glucose (UA) Negative, Urine Ketones Negative, Urine Blood Negative, Urine Nitrate Negative, Urine Bilirubin Negative, Urine Urobilinogen 0.2, Ur Leukocyte Esterase Negative 09/17/23 18:03: VBG pH 7.41, VBG pCO2 46.8, VBG pO2 40.3 H, VBG HCO3 29.1, VBG Total CO2 30.6 H, VBG O2 Saturation 78.7 H, VBG Base Excess 4.5 H, VBG Lactic Acid 2.1 H 09/17/23 17:55 09/17/23 17:55 Response Orders (Tests/Meds): ED MEDICATIONS Discontinued Medications Generic Name Dose Route Start Last Admin Trade Name Wilnerq PRN Reason Stop Dose Admin Acetaminophen 1,000 mg 09/17/23 18:00 09/17/23 18:21 Acetaminophen 1,000mg/100ml Vial IV 09/17/23 18:01 1,000 mg ONCE ONE Administration Diphenhydramine HCl 50 mg 09/17/23 18:03 09/17/23 18:21 Diphenhydramine 50mg/Ml Vial IV 09/17/23 18:04 50 mg ONCE ONE Administration Lactated Ringer's 1,000 mls @ 999 mls/hr 09/17/23 18:00 09/17/23 18:21 Lactated Ringer's 1000 Ml Bag IV 09/17/23 19:00 999 mls/hr .Q1H1M ONE Administration Potassium Chloride/Water 100 mls @ 100 mls/hr 09/17/23 18:21 09/17/23 18:32 Potassium Chloride 10meq/100ml Ivpb IV 09/17/23 19:20 100 mls/hr ONCE ONE Administration Ketorolac Tromethamine 15 mg 09/17/23 18:00 09/17/23 18:21 Ketorolac 30mg/Ml Vial IV 09/17/23 18:01 15 mg ONCE ONE Administration Ondansetron HCl 4 mg 09/17/23 18:21 09/17/23 18:32 Ondansetron 4mg/2ml Vial IV 09/17/23 18:22 4 mg ONCE ONE Administration Potassium Chloride 80 meq 09/17/23 18:21 09/17/23 18:32 Potassium Chloride 20meq Tab PO 09/17/23 18:22 80 meq ONCE ONE Administration ORDERS Category Date Time Status Chest XR -- portable [XR chest portable] Stat Exams 09/17/23 18:01 Completed CBC w/Auto Diff [Complete Blood Count Auto Diff] Stat Lab 09/17/23 17:55 Completed CMP [Comprehensive Metabolic Panel] Stat Lab 09/17/23 17:55 Completed INR [Prothrombin Time INR] Stat Lab 09/17/23 17:55 Completed Trop I [Troponin I] Stat Lab 09/17/23 17:55 Completed Troponin I Q3H Lab 09/17/23 21:15 Ordered Troponin I Q3H Lab 09/18/23 00:15 Ordered UA [Urinalysis and Microscopic] Stat Lab 09/17/23 18:02 Results VBG [Venous Blood Gas] Stat RT 09/17/23 18:03 Completed MDM Narrative Medical Decision Narrative: In summary patient is a 47-year-old male who presents to the emergency department for evaluation of chest pain. Patient is initially hypertensive but with a heart rate of 99 satting at 96% on room air respiratory rate of 20 upon arrival, afebrile. Physical exam is unremarkable and nonfocal including no back pain no chest pain to palpation full range of motion of all 4 extremities no focal neurologic deficits although patient is extraordinarily anxious about his granddaughter.. Differential diagnosis includes ACS versus anxiety versus neurologic injury. Initial workup will be conducted with twelve-lead EKG hematologic labs plain from chest x-ray. Initial interventions include fluid bolus Toradol Tylenol and Benadryl initial workup reviewed by me and his hematologic labs are remarkable for a low potassium which has been repleted the remainder of his hematologic labs are nonactionable including an undetectable troponin. Twelve-lead EKG shows no evidence of ACS. Patient is able to ambulate under his own power without any neurologic deficits or pain. Patient's current pain is 0 out of 10. Upon repeat evaluation patient has returned to complete baseline sensation.. Given this discharged home with a referral to cardiology for further evaluation as an outpatient <Damian Saleh MD - Last Filed: 09/17/23 19:46> Vital Signs Vital Signs: 09/17/23 17:58 09/17/23 18:00 09/17/23 18:30 Temperature 98.0 F Temperature Source Oral Pulse Rate 94 H 96 H Pulse Rate [Right Radial] 99 H Respiratory Rate 20 13 13 Blood Pressure 190/104 H 156/106 H Blood Pressure [Right Arm] 198/112 H Blood Pressure Mean 130 138 Blood Pressure Mean [Right Arm] 140 02 Sat by Pulse Oximetry 96 92 L 92 L Oxygen Delivery Method Room Air 09/17/23 19:43 Temperature Temperature Source Pulse Rate 90 Pulse Rate [Right Radial] Respiratory Rate Blood Pressure Blood Pressure [Right Arm] Blood Pressure Mean Blood Pressure Mean [Right Arm] 02 Sat by Pulse Oximetry Oxygen Delivery Method Lab Data Labs: Lab Results 09/17/23 17:55: WBC 9.4, RBC 5.64, Hgb 17.2, Hct 52.6 H, MCV 93.2, MCH 30.4, MCHC 32.6, RDW 14.0, Plt Count 258, MPV 7.6, Neut % (Auto) 59.8, Lymph % (Auto) 31.1, [place] % (Auto) 5.2, Eos % (Auto) 2.6, Baso % (Auto) 1.2, Neut # (Auto) 5.6, Lymph # (Auto) 2.9, [place] # (Auto) 0.5, Eos # (Auto) 0.2, Baso # (Auto) 0.1, PT 11.3, INR 1.05, Sodium 140, Potassium 2.9 L*, Chloride 100, Carbon Dioxide 35 H, Anion Gap 7.9, BUN 11, Creatinine 1.20, Estimated Creat Clear 99, Estimated GFR 65, Est GFR ( Amer) 79, Glucose 134 H, Calcium 8.8, Total Bilirubin 1.2, AST 34, ALT 37, Alkaline Phosphatase 69, Troponin I < 0.01, Total Protein 7.0, Albumin 4.2, Globulin 2.8, Albumin/Globulin Ratio 1.5 09/17/23 18:02: Urine Color Yellow, Urine Appearance Clear, Urine pH 7.5, Ur Specific [place] 1.010, Urine Protein Negative, Urine Glucose (UA) Negative, Urine Ketones Negative, Urine Blood Negative, Urine Nitrate Negative, Urine Bilirubin Negative, Urine Urobilinogen 0.2, Ur Leukocyte Esterase Negative 09/17/23 18:03: VBG pH 7.41, VBG pCO2 46.8, VBG pO2 40.3 H, VBG HCO3 29.1, VBG Total CO2 30.6 H, VBG O2 Saturation 78.7 H, VBG Base Excess 4.5 H, VBG Lactic Acid 2.1 H Response Orders (Tests/Meds): ED MEDICATIONS Discontinued Medications Generic Name Dose Route Start Last Admin Trade Name Freq PRN Reason Stop Dose Admin Acetaminophen 1,000 mg 09/17/23 18:00 09/17/23 18:21 Acetaminophen 1,000mg/100ml Vial IV 09/17/23 18:01 1,000 mg ONCE ONE Administration Diphenhydramine HCl 50 mg 09/17/23 18:03 09/17/23 18:21 Diphenhydramine 50mg/Ml Vial IV 09/17/23 18:04 50 mg ONCE ONE Administration Lactated Ringer's 1,000 mls @ 999 mls/hr 09/17/23 18:00 09/17/23 18:21 Lactated Ringer's 1000 Ml Bag IV 09/17/23 19:00 999 mls/hr .Q1H1M ONE Administration Potassium Chloride/Water 100 mls @ 100 mls/hr 09/17/23 18:21 09/17/23 18:32 Potassium Chloride 10meq/100ml Ivpb IV 09/17/23 19:20 100 mls/hr ONCE ONE Administration Ketorolac Tromethamine 15 mg 09/17/23 18:00 09/17/23 18:21 Ketorolac 30mg/Ml Vial IV 09/17/23 18:01 15 mg ONCE ONE Administration Ondansetron HCl 4 mg 09/17/23 18:21 09/17/23 18:32 Ondansetron 4mg/2ml Vial IV 09/17/23 18:22 4 mg ONCE ONE Administration Potassium Chloride 80 meq 09/17/23 18:21 09/17/23 18:32 Potassium Chloride 20meq Tab PO 09/17/23 18:22 80 meq ONCE ONE Administration ORDERS Category Date Time Status Chest XR -- portable [XR chest portable] Stat Exams 09/17/23 18:01 Completed CBC w/Auto Diff [Complete Blood Count Auto Diff] Stat Lab 09/17/23 17:55 Completed CMP [Comprehensive Metabolic Panel] Stat Lab 09/17/23 17:55 Completed INR [Prothrombin Time INR] Stat Lab 09/17/23 17:55 Completed Trop I [Troponin I] Stat Lab 09/17/23 17:55 Completed Troponin I Q3H Lab 09/17/23 21:15 Ordered Troponin I Q3H Lab 09/18/23 00:15 Ordered UA [Urinalysis and Microscopic] Stat Lab 09/17/23 18:02 Results VBG [Venous Blood Gas] Stat RT 09/17/23 18:03 Completed MDM Narrative Medical Decision Narrative: In summary patient is a 47-year-old male who presents to the emergency department for evaluation of chest pain. Patient is initially hypertensive but with a heart rate of 99 satting at 96% on room air respiratory rate of 20 upon arrival, afebrile. Physical exam is unremarkable and nonfocal including no back pain no chest pain to palpation full range of motion of all 4 extremities no focal neurologic deficits although patient is extraordinarily anxious about his granddaughter.. Differential diagnosis includes ACS versus anxiety versus neurologic injury. Initial workup will be conducted with twelve-lead EKG hematologic labs plain from chest x-ray. Initial interventions include fluid bolus Toradol Tylenol and Benadryl initial workup reviewed by me and his hematologic labs are remarkable for a low potassium which has been repleted the remainder of his hematologic labs are nonactionable including an undetectable troponin. Twelve-lead EKG shows no evidence of ACS. Patient is able to ambulate under his own power without any neurologic deficits or pain. Patient's current pain is 0 out of 10. Upon repeat evaluation patient has returned to complete baseline sensation.. Given this discharged home with a referral to cardiology for further evaluation as an outpatient EKG independently interpreted, sinus tachycardia with LVH. Symmetric T wave inversions consistent with repolarization abnormality in the setting of LVH. No acute ischemic change. Rate 104 bpm, intervals within normal limits including ME, QRS, QT. I was consulted by the [facility], and we discussed the complexity of the problems being addressed. I approved the treatment and management plan for this patient?s care in the Emergency Department, thus performing a substantive portion of the medical decision making. Damian Saleh MD
--- NOTE | 2023-09-17 18:01 | XR_ITS ---
PROCEDURE INFORMATION: Exam: XR Chest Exam date and time: 09/17/2023 6:06 PM Age: 47 years old Clinical indication: Sternal or substernal pain; Additional info: Chest pain after stressful event TECHNIQUE: Imaging protocol: Radiologic exam of the chest. Views: 1 view. COMPARISON: CT ABDOMEN PELVIS WO CON 03/19/2021 8:15 PM FINDINGS: Lungs: The lungs are clear. Pleural spaces: There is no evidence for pneumothorax. Heart/Mediastinum: The heart size is within normal limits. Bones/joints: Unremarkable. IMPRESSION: 1. The lungs are clear. 2. There is no evidence for pneumothorax.
[2023-09-17 18:10] LABS: Chloride 100 mmol/L (98-107); Sodium 140 mmol/L (136-145)
[2023-09-17 18:13] LABS: Alanine Aminotransferase 37 U/L (12-78); Albumin Level 4.2 g/dl (3.5-5.0); Albumin/Globulin Ratio 1.5 (1.1-1.8); Alkaline Phosphatase 69 U/L (38-126); Anion Gap 7.9 mEq/L (5-15); Aspartate Amino Transferase 34 U/L (17-59); Bilirubin,Total 1.2 mg/dl (0.2-1.3); Blood Urea Nitrogen 11 mg/dl (9-20); Carbon Dioxide 35 mmol/L (22.0-30.0); Creatinine Clearance Estimated 99 mL/min (50-200); Estimated Glomerular Filt Rate 65 ml/min (>60); GFR (African American) 79 ML/MIN (>60); Globulin 2.8 g/dL (1.3-3.2)
[2023-09-17 18:14] LABS: Calcium 8.8 mg/dl (8.4-10.2); Glucose 134 mg/dl (74-100)
[2023-09-17 18:15] LABS: INR 1.05 (0.9-1.1); Prothrombin Time 11.3 seconds (10.1-12.5)
[2023-09-17 18:17] LABS: Potassium 2.9 mmoL/L (3.5-5.1)
--- NOTE | 2023-09-17 18:20 | PC.NURSE ---
Dr. Saleh & Allan Diana PA-C notified critical potassium
[2023-09-17 18:21] LABS: Basophils # 0.1 K/mm3 (0-0.2); Basophils % 1.2 % (0.1-2.0); Eosinophils # 0.2 K/mm3 (0.0-0.4); Eosinophils % 2.6 % (0.1-12.0); Hematocrit 52.6 % (42.0-52.0); Hemoglobin 17.2 g/dL (14.1-18.0); Lymphocytes # 2.9 K/mm3 (0.7-4.5); Lymphocytes % 31.1 % (10-50); Mean Corpuscular HGB Conc 32.6 g/dL (31.8-35.4); Mean Corpuscular Hemoglobin 30.4 pg (27.0-31.2); Mean Corpuscular Volume 93.2 fl (80-94); Mean Platelet Volume 7.6 fl (7.4-10.4); Monocytes # 0.5 K/mm3 (0.1-1.0); Monocytes % 5.2 % (1.7-9.3); Neutrophils # 5.6 K/mm3 (1.8-7.8); Neutrophils % 59.8 % (37.0-80.0); Platelet Count 258 K/mm3 (142-424); Red Blood Count 5.64 M/mm3 (4.60-6.20); White Blood Count 9.4 K/mm3 (4.8-10.8)
[2023-09-17] MEDS: ACETAMINOPHEN 1,000MG/100ML VIAL 1000 MG IV (18:21)
[2023-09-17] MEDS: KETOROLAC 30MG/ML VIAL 15 MG IV (18:21)
[2023-09-17] MEDS: diphenhydrAMINE 50MG/ML VIAL 50 MG IV (18:21)
[2023-09-17] MEDS: LACTATED RINGERS 1000ML 1,000 ML 999 ML IV (18:21)
[2023-09-17 18:22] LABS: VBG Base Excess 4.5 mmol/L (-2.4-2.3); VBG HCO3 29.1 mmol/L (23-30); VBG Oxygen Saturation 78.7 % (50-70); VBG PCO2 46.8 mmol/L (35-51); VBG PH 7.41 mmol/L (7.31-7.41); VBG PO2 40.3 mmol/L (28-40); VBG Total CO2 30.6 mmol/L (23-27)
[2023-09-17 18:28] LABS: Lactate Venous 2.1 mmol/L (0.4-2.0)
[2023-09-17 18:28] LABS: Troponin I < 0.01 ng/ml (0.00-0.034)
[2023-09-17 18:30] VITALS: BP 156/106; PULSE 96; RESP 13; O2SAT 92
[2023-09-17] MEDS: ONDANSETRON 4MG/2ML VIAL 4 MG IV (18:32)
[2023-09-17] MEDS: POTASSIUM CHLORIDE 20MEQ TAB 80 MEQ PO (18:32)
[2023-09-17] MEDS: KCl 10mEq/100ml 100 ML 100 MEQ IV (18:32)
[2023-09-17 19:41] LABS: Microscopic, Urine URINE MICROSCOPIC (MICROSCOPIC)
[2023-09-17 19:43] VITALS: PULSE 90
[2023-09-17 19:44] LABS: Appearance,Urine CLEAR (Clear); Bilirubin,Urine Negative (Negative); Blood, Urine Negative (Negative); Color,Urine YELLOW (Yellow); Glucose,Urine (UA) Negative (Negative); Ketones,Urine Negative (Negative); Leukocyte Esterase,Urine Negative (Negative); Nitrate,Urine Negative (Negative); PH,Urine 7.5 (5.0-8.5); Protein,Urine Negative (Negative); Urobilinogen,Urine 0.2 EU/dl (0.2)
[2023-09-17 19:47] VITALS: BP 157/80; PULSE 75; RESP 18; TEMP 36.7; O2SAT 97
[2023-09-17 19:54] LABS: Bacteria,Urine Trace /lpf; Squamous Epithelial Cell,Urine Occasional #/hpf (0-5)
[2023-09-17 22:29] LABS: Reflex Lactic Add Lactic Reflex
== END 2023-09-17 19:49 | disposition home or self-care (01) ==
PROVIDERS: Physician Assistant; Emergency Provider Emergency Medicine; PCP Nurse Practitioner Family
DX: R07.89 Other chest pain (principal); E87.6 Hypokalemia; R00.0 Tachycardia, unspecified; F17.210 Nicotine dependence, cigarettes, uncomplicated; I10 Essential (primary) hypertension
CPT/HCPCS: 71045; 80053; 81001; 82803; 84484; 85025; 85610; 93005; 96365; 96375; 99285; J0131; J2405

== ENCOUNTER 2024-02-02 07:39 | Outpatient (CLI) | payer BC, SELFPAY ==
[2024-02-02 08:15] LABS: Basophils # 0.1 K/mm3 (0-0.2); Basophils % 1.2 % (0.1-2.0); Eosinophils # 0.3 K/mm3 (0.0-0.4); Eosinophils % 4.2 % (0.1-12.0); Hematocrit 52.4 % (42.0-52.0); Hemoglobin 16.9 g/dL (14.1-18.0); Lymphocytes # 2.2 K/mm3 (0.7-4.5); Lymphocytes % 30.9 % (10-50); Mean Corpuscular HGB Conc 32.3 g/dL (31.8-35.4); Mean Corpuscular Hemoglobin 29.8 pg (27.0-31.2); Mean Corpuscular Volume 92.4 fl (80-94); Mean Platelet Volume 7.7 fl (7.4-10.4); Monocytes # 0.5 K/mm3 (0.1-1.0); Monocytes % 7.3 % (1.7-9.3); Neutrophils % 56.5 % (37.0-80.0); Platelet Count 263 K/mm3 (142-424); Red Blood Count 5.67 M/mm3 (4.60-6.20); Red Cell Distribution Width 14.1 % (11.5-17.5); White Blood Count 7.1 K/mm3 (4.8-10.8)
[2024-02-02 09:30] LABS: Albumin Level 4.3 g/dl (3.5-5.0); Chloride 103 mmol/L (98-107); Sodium 141 mmol/L (136-145)
[2024-02-02 09:31] LABS: Potassium 3.4 mmoL/L (3.5-5.1)
[2024-02-02 09:33] LABS: Alanine Aminotransferase 38 U/L (12-78); Albumin/Globulin Ratio 1.6 (1.1-1.8); Anion Gap 7.4 mEq/L (5-15); Aspartate Amino Transferase 36 U/L (17-59); Blood Urea Nitrogen 14 mg/dl (9-20); Carbon Dioxide 34 mmol/L (22.0-30.0); Estimated Glomerular Filt Rate 54 ml/min (>60); GFR (African American) 66 ML/MIN (>60); Globulin 2.7 g/dL (1.3-3.2)
[2024-02-02 09:34] LABS: Alkaline Phosphatase 62 U/L (38-126); Bilirubin,Total 1.3 mg/dl (0.2-1.3); Calcium 8.5 mg/dl (8.4-10.2); Chol/HDL Ratio 5.4 (1-3.5); Cholesterol 201 mg/dl (140-200); Glucose 91 mg/dl (74-100); HDL Cholesterol 37 mg/dl (40-60); Triglycerides 126 mg/dl (30-150); VLDL Cholesterol 25 mg/dL (0-40)
[2024-02-02 09:45] LABS: Direct LDL Cholesterol 126.29 mg/dL (100-129)
[2024-02-02 10:36] LABS: Hemoglobin A1C 5.7 % (4.0-6.0)
== END 2024-02-02 23:59 | disposition home or self-care (01) ==
LOC: LAB 07:42
PROVIDERS: PCP Internal Medicine Adolescent Medicine; Visit Provider Internal Medicine Adolescent Medicine
DX: I10 Essential (primary) hypertension (principal); R73.9 Hyperglycemia, unspecified; Z80.0 Family history of malignant neoplasm of digestive organs; Z00.00 Encounter for general adult medical examination without abnormal findings; Z72.0 Tobacco use
CPT/HCPCS: 36415; 80053; 80061; 83036; 85025